=== PATIENT | female | born 1995 | race Caucasian/White ===

== ENCOUNTER 2018-02-12 10:14 | Emergency (ER) | payer OTHER ==
[~2018-02-12] VITALS: Ht 157.5 cm; Wt 77.6 kg
[2018-02-12 10:21] VITALS: Ht 157.5 cm; Wt 77.6 kg
[2018-02-12 11:03] LABS: CALCIUM 8.4 mg/dL (8.5-10.1); CARBON DIOXIDE 26.5 mmol/L (21-32); CHLORIDE SERUM 104 mmol/L (98-107); CREATININE SERUM 0.6 mg/dL (0.6-1.0); GFR1 > 60 mL/min; GLUCOSE SERUM 94 mg/dL (74-106); POTASSIUM SERUM 3.7 mmol/L (3.5-5.1); SODIUM SERUM 136 mmol/L (136-145)
[2018-02-12 11:08] LABS: ALKALINE PHOSPHATASE 51 U/L (46-116); ALT/SGPT 16 U/L (14-59); AST/SGOT 12 U/L (15-37); BILIRUBIN TOTAL 0.2 mg/dL (0.20-1.00)
[2018-02-12 11:10] LABS: ALBUMIN 2.8 g/dL (3.4-5.0)
[2018-02-12 11:15] LABS: BASOPHIL % 0.4 % (0-2); PLATELET COUNT 302 x10^3mcL (130-400); RED CELL DISTRIBUTION WIDTH 13.2 % (11.5-14.5)
[2018-02-12 12:37] LABS: UA SPECIFIC GRAVITY 1.015 (1.005-1.035)
[2018-02-12 12:38] LABS: microscopic required? YES
[2018-02-12 12:39] LABS: urine erythrocyte NEGATIVE (NEGATIVE)
[2018-02-12 13:55] VITALS: BP 101/62
== END 2018-02-12 13:55 | disposition home or self-care (01) ==
LOC: ED 10:14
PROVIDERS: Emergency Medicine
DX: O26.892 Other specified pregnancy related conditions, second trimester (principal); R55 Syncope and collapse; Z3A.17 17 weeks gestation of pregnancy
CPT/HCPCS: J7030